=== PATIENT | male | born 1970 | race African-American/Black ===

== ENCOUNTER 2023-08-23 15:25 | Inpatient (IN) ==
[2023-08-23 17:45] LABS: Basophils # (Auto) 0.01 K/mcL (0.00-0.30); Basophils % (Auto) 0.1 % (0.0-2.0); Eosinophils # (Auto) 0.06 K/mcL (0.00-0.70); Eosinophils % (Auto) 0.8 % (0.0-7.0); Hematocrit 42.5 % (40.1-51.0); Hemoglobin 13.3 g/dL (13.7-17.5); Mean Cell Volume 86.6 fL (80.0-100.0); Mean Corpuscular HGB Conc 31.3 g/dL (31.0-36.0); Mean Platelet Volume 9.3 fL (8.8-12.5); Monocytes # (Auto) 0.42 K/mcL (0.10-0.90); Monocytes % (Auto) 5.9 % (1.0-12.0); Neutrophils % (Auto) 65.1 % (38.0-78.0); Platelet Count 248 K/mcL (140-440); RBC 4.91 M/mcL (4.63-6.08); WBC 7.2 K/mcL (4.5-11.0)
[2023-08-23 18:04] LABS: Phosphorous 3.7 mg/dL (2.5-4.5)
[2023-08-23] MEDS: 0.9 % SODIUM CHLORIDE 1,000 ML IV ONE ×2 (18:10→20:04)
[2023-08-23 18:32] LABS: ALT/SGPT 241 U/L (<40); AST/SGOT 1099 U/L (<40); Albumin 4.3 gm/dL (3.2-5.2); Albumin/Globulin Ratio 1.9 (1.0-2.3); Alkaline Phosphatase 44 U/L (39-117); Bilirubin,Total 0.3 mg/dL (0.1-1.0); Blood Urea Nitrogen 22 mg/dL (6-20); Calcium 9.6 mg/dL (8.6-10.4); Carbon Dioxide 25 mmol/L (22-30); Chloride 100 mmol/L (96-108); Globulin 2.3 gm/dL (2.2-3.7); Glomerular Filtration Rate 77; Glucose 85 mg/dL (70-105)
[2023-08-23] MEDS ORDERED: ONDANSETRON 4 MG/2 ML VIAL IV PRN (21:32)
[2023-08-23] MEDS ORDERED: KETOROLAC 15 MG/ML VIAL IV PRN (21:32)
[2023-08-23] MEDS ORDERED: oxyCODONE IR 5 MG TABLET PO PRN (21:32)
[2023-08-23] MEDS ORDERED: HYDROmorphone 0.5 MG/0.5 ML SYRINGE IV PRN (21:32)
[2023-08-23] MEDS: SENNOSIDES 1 TABLET PO SCH (22:04)
[2023-08-23] MEDS: 0.9 % SODIUM CHLORIDE 1,000 ML IV SCH (22:17)
[2023-08-23] MEDS: 0.9 % SODIUM CHLORIDE 10 ML SYRINGE IV SCH (22:17)
[2023-08-23 23:26] LABS: Creatine Kinase > 20000 U/L (24-195)
[2023-08-23 23:38] LABS: Amphetamine Screen,Urine None detected; Barbiturate Screen,Urine None detected; Benzodiazepines Screen,Urine None detected; Cannabinoid Screen,Urine None detected; Cocaine Screen,Urine None detected; Opiate Screen,Urine None detected; Oxycodone, Urine Screen None detected; Phencyclidine Screen,Urine None detected
[2023-08-24 05:57] LABS: Basophils # (Auto) 0.01 K/mcL (0.00-0.30); Basophils % (Auto) 0.2 % (0.0-2.0); Eosinophils # (Auto) 0.08 K/mcL (0.00-0.70); Hematocrit 37.6 % (40.1-51.0); Hemoglobin 11.8 g/dL (13.7-17.5); Lymphocytes % (Auto) 34.3 % (15.5-49.0); Mean Cell Volume 86.6 fL (80.0-100.0); Mean Corpuscular HGB Conc 31.4 g/dL (31.0-36.0); Mean Platelet Volume 9.5 fL (8.8-12.5); Monocytes # (Auto) 0.37 K/mcL (0.10-0.90); Monocytes % (Auto) 9.1 % (1.0-12.0); Neutrophils % (Auto) 54.4 % (38.0-78.0); Platelet Count 205 K/mcL (140-440); RBC 4.34 M/mcL (4.63-6.08); WBC 4.1 K/mcL (4.5-11.0)
[2023-08-24 07:57] LABS: ALT/SGPT 207 U/L (<40); AST/SGOT 809 U/L (<40); Albumin 3.5 gm/dL (3.2-5.2); Albumin/Globulin Ratio 1.9 (1.0-2.3); Alkaline Phosphatase 36 U/L (39-117); Bilirubin,Direct < 0.2 mg/dL (0-0.3); Bilirubin,Total 0.3 mg/dL (0.1-1.0); Blood Urea Nitrogen 17 mg/dL (6-20); Calcium 8.6 mg/dL (8.6-10.4); Carbon Dioxide 24 mmol/L (22-30); Chloride 105 mmol/L (96-108); Globulin 1.8 gm/dL (2.2-3.7); Glomerular Filtration Rate 77; Glucose 98 mg/dL (70-105); Lactate Dehydrogenase 1326 U/L (135-225); Phosphorous 3.6 mg/dL (2.5-4.5); Triglycerides 38 mg/dL (<150); Uric Acid 6.5 mg/dL (2.5-8.0)
[2023-08-25 06:34] LABS: Basophils # (Auto) 0.01 K/mcL (0.00-0.30); Basophils % (Auto) 0.2 % (0.0-2.0); Eosinophils # (Auto) 0.15 K/mcL (0.00-0.70); Eosinophils % (Auto) 3.4 % (0.0-7.0); Hematocrit 38.5 % (40.1-51.0); Hemoglobin 11.8 g/dL (13.7-17.5); Lymphocytes # (Auto) 1.41 K/mcL (1.50-4.80); Lymphocytes % (Auto) 32.3 % (15.5-49.0); Mean Cell Volume 89.1 fL (80.0-100.0); Mean Corpuscular HGB Conc 30.6 g/dL (31.0-36.0); Monocytes # (Auto) 0.43 K/mcL (0.10-0.90); Monocytes % (Auto) 9.9 % (1.0-12.0); Neutrophils % (Auto) 54.2 % (38.0-78.0); Platelet Count 210 K/mcL (140-440); RBC 4.32 M/mcL (4.63-6.08); Red Cell Distribution Width 13.3 % (11.5-14.5); WBC 4.4 K/mcL (4.5-11.0)
[2023-08-25 08:15] LABS: ALT/SGPT 259 U/L (<40); AST/SGOT 923 U/L (<40); Albumin 3.6 gm/dL (3.2-5.2); Albumin/Globulin Ratio 1.8 (1.0-2.3); Alkaline Phosphatase 36 U/L (39-117); Bilirubin,Direct < 0.2 mg/dL (0-0.3); Bilirubin,Total 0.3 mg/dL (0.1-1.0); Blood Urea Nitrogen 12 mg/dL (6-20); Calcium 8.9 mg/dL (8.6-10.4); Carbon Dioxide 24 mmol/L (22-30); Chloride 105 mmol/L (96-108); Glomerular Filtration Rate 98; Glucose 94 mg/dL (70-105); Lactate Dehydrogenase 1400 U/L (135-225); Phosphorous 2.9 mg/dL (2.5-4.5); Triglycerides 37 mg/dL (<150); Uric Acid 5.9 mg/dL (2.5-8.0)
[2023-08-26 06:41] LABS: Basophils # (Auto) 0.02 K/mcL (0.00-0.30); Basophils % (Auto) 0.5 % (0.0-2.0); Eosinophils # (Auto) 0.12 K/mcL (0.00-0.70); Eosinophils % (Auto) 2.9 % (0.0-7.0); Hematocrit 36.4 % (40.1-51.0); Hemoglobin 11.3 g/dL (13.7-17.5); Lymphocytes # (Auto) 1.39 K/mcL (1.50-4.80); Lymphocytes % (Auto) 33.3 % (15.5-49.0); Mean Cell Volume 86.9 fL (80.0-100.0); Mean Platelet Volume 10.3 fL (8.8-12.5); Monocytes # (Auto) 0.39 K/mcL (0.10-0.90); Monocytes % (Auto) 9.4 % (1.0-12.0); Neutrophils % (Auto) 53.9 % (38.0-78.0); Platelet Count 207 K/mcL (140-440); RBC 4.19 M/mcL (4.63-6.08); Red Cell Distribution Width 13.1 % (11.5-14.5); WBC 4.2 K/mcL (4.5-11.0)
[2023-08-26 07:19] LABS: ALT/SGPT 290 U/L (<40); AST/SGOT 997 U/L (<40); Albumin 3.7 gm/dL (3.2-5.2); Albumin/Globulin Ratio 1.9 (1.0-2.3); Alkaline Phosphatase 35 U/L (39-117); Bilirubin,Direct < 0.2 mg/dL (0-0.3); Bilirubin,Total 0.2 mg/dL (0.1-1.0); Blood Urea Nitrogen 10 mg/dL (6-20); Carbon Dioxide 25 mmol/L (22-30); Chloride 101 mmol/L (96-108); Glomerular Filtration Rate 86; Glucose 82 mg/dL (70-105); Lactate Dehydrogenase 1074 U/L (135-225); Phosphorous 3.2 mg/dL (2.5-4.5); Triglycerides 36 mg/dL (<150); Uric Acid 5.4 mg/dL (2.5-8.0)
[2023-08-26 15:04] LABS: Creatine Kinase > 20000 U/L (24-195)
== END 2023-08-26 15:40 | disposition home or self-care (01) | DRG 558 ==
LOC: ED 15:25 → MEDSUR 21:29
PROVIDERS: ADMIT Internal Medicine; ATTEND Internal Medicine